=== PATIENT | female | born 1950 | race Caucasian/White ===

== ENCOUNTER 2022-03-11 17:41 | Emergency (ER) | payer MEDICARE, OTHER ==
[~2022-03-11] VITALS: Ht 149.9 cm; Wt 59.1 kg
[2022-03-11 19:28] VITALS: BP 137/85
== END 2022-03-11 19:50 | disposition home or self-care (01) ==
LOC: ED 17:41
DX: S93.402A Sprain of unspecified ligament of left ankle, initial encounter (principal); S80.02XA Contusion of left knee, initial encounter; W54.1XXA Struck by dog, initial encounter; Y92.009 Unspecified place in unspecified non-institutional (private) residence as the place of occurrence of the external cause

== ENCOUNTER 2023-11-02 18:15 | Emergency (ER) | payer MEDICARE, OTHER ==
[~2023-11-02] VITALS: Ht 149.9 cm; Wt 60.0 kg
[2023-11-02 18:54] VITALS: BP 133/78
[2023-11-02] MEDS ORDERED: FLUORESCEIN SODIUM 1 MG EA ONE (18:56)
[2023-11-02 19:00] VITALS: BP 142/84
[2023-11-02] MEDS ORDERED: ERYTHROMYCIN O3.5 GM OD (19:22)
[2023-11-02] MEDS ORDERED: ACULAR LS0.4 % OD (19:22)
[2023-11-02 19:36] VITALS: BP 142/84
== END 2023-11-02 19:40 | disposition home or self-care (01) ==
LOC: ED 18:15
DX: S05.01XA Injury of conjunctiva and corneal abrasion without foreign body, right eye, initial encounter (principal); X58.XXXA Exposure to other specified factors, initial encounter